=== PATIENT | male | born 1980 | race Two or more races ===

== ENCOUNTER 2020-09-11 06:13 | Emergency (ER) | payer MEDICARE, MEDICAID, SELFPAY ==
[2020-09-11 06:21] VITALS: BP 129/70; PULSE 97; RESP 18; TEMP 38.2; O2SAT 97; BMI 31.1
--- NOTE | 2020-09-11 06:41 | PC.NURSE ---
side rales padded suction at bedside.
--- NOTE | 2020-09-11 06:46 | ECG_ITS ---
Test Reason : SEIZURE Blood Pressure : / mmHG Vent. Rate : 099 BPM Atrial Rate : 099 BPM P-R Int : 164 ms QRS Dur : 072 ms QT Int : 340 ms P-R-T Axes : 035 -08 054 degrees QTc Int : 436 ms Normal sinus rhythm Normal ECG When compared with ECG of 18-FEB-2009 19:14, Nonspecific ST abnormality Septal leads is no longer Present Heart rate has increased Referred By: Maribeth Shepard Electronically Signed By:GEETA CAMPBELL MD
--- NOTE | 2020-09-11 07:24 | ED.SEIZURE ---
HPI - Seizure General Chief Complaint: Seizure Stated Complaint: SEIZURES Time Seen by Provider: 09/11/20 06:45 Source: patient and EMS Mode of arrival: EMS Limitations: no limitations History of Present Illness HPI Narrative: patient comes to the emergency room after having 1 seizure. Patient states he got up to the bathroom, does not remember anything else. Patient states he has history of seizures, takes Keppra 1000 mg twice a day, has been compliant with his medication. Patient states he had a seizure last week, was minor, did not go to the hospital. Patient's neurologist is in [place]. At this time, patient feels tired but nearly back to baseline. patient states over last 3-4 days, he has been feeling feverish, like he is getting a cold MD complaint: seizure Onset (ago): minute(s) Related Data Previous Rx's Medication Instructions Recorded azithromycin 250 mg PO DAILY 5 Days #5 tab 09/11/20 Allergies Allergy/AdvReac Type Severity Reaction Status Date / Time No Known Allergies Allergy Mild NONE Unverified 08/06/20 16:08 NKDA Allergy Unknown Uncoded 08/22/19 00:00 Review of Systems Review of Systems: Constitutional : No Weight loss, No Fever, No Chills, No Night Sweats, No Fatigue, No Malaise ENT/Mouth : No Hearing loss, No Ear Pain, No Nasal Congestion, No Sinus Pain, No Hoarseness, No sore throat, No Rhinorrhea, No Swallowing Difficulty Eyes: No Eye Pain, No Swelling, No Redness, No Foreign Body, No Discharge, No Vision Changes Cardiovascular : No Chest Pain, No SOB, No Dyspnea on Exertion, No Orthopnea, No Edema, No Palpitations Respiratory : No Cough, No Sputum, No Wheezing, No Smoke Exposure, No Dyspnea Gastrointestinal : No Nausea, No Vomiting, No Diarrhea, No Constipation, No abdominal Pain, No Hematochezia, No Melena Genitourinary : no irregular bleeding, No Dysuria, No Urinary Frequency, No Hematuria, No Urinary Incontinence, No Urgency, No Flank Pain, No Urinary Flow Changes, No Hesitancy Musculoskeletal : No joint pain, No Myalgias, No Joint Swelling Skin : No Skin Lesions, No rash Neuro : No Weakness, No Numbness, No Paresthesias, no headache, had 1 seizure this morning, patient does not recall, tested by patient's and EMS, feeling mildly postictal but recovering Psych : No Anxiety/Panic, No Depression, No SI/HI/AH/VH, No Social Issues, Heme/Lymph: No Bruising, No Bleeding,No Lymphadenopathy Endocrine : No Polyuria, No Polydipsia, No Temperature Intolerance [facility] Past Medical History Medical History (Updated 09/11/20 @ 10:23 by Carol Chapman MD) Diabetes mellitus, type 2 Hypertension Seizures Social History Social History Advance Directives: No Physical Exam Vital Signs: Vital Signs: Vital Signs Temp Pulse Resp BP Pulse Ox 09/11/20 06:21 100.8 F H 97 18 129/70 97 Body Mass Index 31.1 Appearance: Alert. Oriented X3. No acute distress. Eyes: Pupils equal, round and reactive to light. ENT: Pharynx normal. Neck: Normal inspection. Neck supple. No lymph nodes noted. No crepitus CVS: Normal heart rate and rhythm. Pulses normal. Normal S1 and S2 Respiratory: No respiratory distress. Breath sounds normal. No Wheezing. No rales Abdomen: Soft and nontender. No rigidity. No distention. good BS x4 Skin: Skin warm and dry. Normal skin color. Normal skin turgor. Extremities: No lower extremity edema. No lower extremity edema. No Lacerations. No Rash Neuro: Oriented X 3. No motor deficit. No sensory deficit. Moving all extermities. No slurred speech. Course Course Course Narrative: Patient states he feels better, he received 1000 mg of Keppra IV. Patient states he is no longer postictal or drowsy. I discussed the labs and imaging with the patient, consistent with COVID-19 infection. Patient's oxygen saturation is 96% on room air, patient may still go home. I discussed with the patient that his needs to be tested as well MDM - Seizure Lab Data Result diagrams: 09/11/20 07:43 09/11/20 07:42 Labs: Lab Results 09/11/20 09/11/20 09/11/20 Range/Units 07:42 07:42 07:42 WBC (4.8-10.8) X10*3/uL RBC (4.60-5.80) X10*6/uL Hgb (14.0-18.0) g/dl Hct (42-52) % MCV (80-98) fL MCH (27.0-33.0) pg MCHC (31.0-36.0) g/dl RDW (11.0-16.0) % Plt Count (160-400) X10*3/uL MPV (9.4-12.4) fL Immature Gran % (Auto) (0.0-0.4) % Neut % (Auto) (45-73) % Lymph % (Auto) (20-40) % [place] % (Auto) (2-11) % Eos % (Auto) (0-4) % Baso % (Auto) (0-2) % Lymph # (Auto) (1.2-4.9) X10*3/uL [place] # (Auto) (0.1-1.2) X10*3/uL Eos # (Auto) (0.0-0.4) X10*3/uL Baso # (Auto) (0.0-0.2) X10*3/uL Abs Immat Gran (auto) (0.00-0.03) X10*3/uL Absolute Neuts (auto) (2.0-8.3) X10*3/uL Absolute Nucleated RBC (0.0-0.012) X10*3/uL Nucleated RBC % (auto) (0.0-0.2) /100WBC Sodium 135 (135-145) mmol/L Potassium 4.2 (3.3-5.1) mmol/l Chloride 102 (96-108) mmol/L Carbon Dioxide 25 (22-29) mmol/L Anion Gap 12 (12-20) BUN 15 (9-16) mg/dL Creatinine 0.91 (0.5-1.4) mg/dL Estim Creat Clear Calc 117.0 Estimated GFR > 60 Random Glucose 237 H (60-115) mg/dL Lactic Acid 0.8 (0.5-2.0) mmol/L Calcium 8.2 L (8.4-10.2) mg/dL Total Bilirubin 0.3 (0.0-1.0) mg/dL AST 28 (5-37) U/L ALT 42 H (0-40) U/L Alkaline Phosphatase 153 H (39-117) U/L Total Protein 6.5 (6.5-8.0) g/dL Albumin 3.7 (3.5-5.0) g/dL Lipase 74 (8-78) U/L Ethyl Alcohol < 10 mg/dL Coronavirus (PCR) (Negative) 09/11/20 09/11/20 Range/Units 07:43 08:11 WBC 5.1 (4.8-10.8) X10*3/uL RBC 5.05 (4.60-5.80) X10*6/uL Hgb 13.4 L (14.0-18.0) g/dl Hct 40.4 L (42-52) % MCV 80.0 (80-98) fL MCH 26.5 L (27.0-33.0) pg MCHC 33.2 (31.0-36.0) g/dl RDW 13.0 (11.0-16.0) % Plt Count 161 (160-400) X10*3/uL MPV 11.6 (9.4-12.4) fL Immature Gran % (Auto) 0.8 H (0.0-0.4) % Neut % (Auto) 79.5 H (45-73) % Lymph % (Auto) 14.2 L (20-40) % [place] % (Auto) 4.7 (2-11) % Eos % (Auto) 0.6 (0-4) % Baso % (Auto) 0.2 (0-2) % Lymph # (Auto) 0.7 L (1.2-4.9) X10*3/uL [place] # (Auto) 0.2 (0.1-1.2) X10*3/uL Eos # (Auto) 0.0 (0.0-0.4) X10*3/uL Baso # (Auto) 0.0 (0.0-0.2) X10*3/uL Abs Immat Gran (auto) 0.04 H (0.00-0.03) X10*3/uL Absolute Neuts (auto) 4.0 (2.0-8.3) X10*3/uL Absolute Nucleated RBC 0.000 (0.0-0.012) X10*3/uL Nucleated RBC % (auto) 0.0 (0.0-0.2) /100WBC Sodium (135-145) mmol/L Potassium (3.3-5.1) mmol/l Chloride (96-108) mmol/L Carbon Dioxide (22-29) mmol/L Anion Gap (12-20) BUN (9-16) mg/dL Creatinine (0.5-1.4) mg/dL Estim Creat Clear Calc Estimated GFR Random Glucose (60-115) mg/dL Lactic Acid (0.5-2.0) mmol/L Calcium (8.4-10.2) mg/dL Total Bilirubin (0.0-1.0) mg/dL AST (5-37) U/L ALT (0-40) U/L Alkaline Phosphatase (39-117) U/L Total Protein (6.5-8.0) g/dL Albumin (3.5-5.0) g/dL Lipase (8-78) U/L Ethyl Alcohol mg/dL Coronavirus (PCR) POSITIVE A (Negative) ECG Data Attestation: I personally reviewed and interpreted this ECG as follows: ( sinus rhythm, heart rate 99, QTC 436, no ST segment elevations or depressions, no T-wave inversions) Discharge Plan Discharge Clinical Impression: Seizures, COVID-19 Patient Disposition: Home, Self-Care Instructions: Recurrent Seizures in Adults (ED), COVID-19 (Coronavirus Disease 2019) (ED) Additional Instructions: please remain self isolated. please discuss with people in your household that they need to be tested for COVID-19. If you have any worsening symptoms, shortness of breath, please return to the emergency room or call 911. also, please call your neurologist and discuss whether you need a readjustment in your current Keppra dose Prescriptions: New azithromycin 250 mg tablet 250 mg PO DAILY 5 Days Qty: 5 RF: 0
--- NOTE | 2020-09-11 07:26 | XR_ITS ---
EXAMINATION: XR CHEST CLINICAL INFORMATION: Fever COMPARISON: October 22, 2018 TECHNIQUE: AP portable view of the chest was obtained. FINDINGS: There are regions of groundglass disease seen within the right lower lung, left mid lung, and left lower lung. No pneumothorax or pleural effusion. Heart normal size. No evidence of pulmonary edema. XR/XR chest 1V IMPRESSION: Patchy regions of disease bilaterally consistent with with pneumonia.
[2020-09-11 07:50] LABS: MANUAL DIFF FLAG NO
[2020-09-11 08:02] LABS: Basophils Percent Auto 0.2 % (0-2); Eosinophils Percent Auto 0.6 % (0-4); Hematocrit 40.4 % (42-52); Hemoglobin 13.4 g/dl (14.0-18.0); Imm Gran Abs Auto 0.04 X10*3/uL (0.00-0.03); Imm Gran Pct Auto 0.8 % (0.0-0.4); Lymphocytes Absolute Auto 0.7 X10*3/uL (1.2-4.9); Lymphocytes Percent Auto 14.2 % (20-40); Mean Corpuscular HGB Conc 33.2 g/dl (31.0-36.0); Mean Corpuscular Hemoglobin 26.5 pg (27.0-33.0); Mean Platelet Volume 11.6 fL (9.4-12.4); Monocytes Absolute Auto 0.2 X10*3/uL (0.1-1.2); Monocytes Percent Auto 4.7 % (2-11); Neutrophils Percent Auto 79.5 % (45-73); Platelet Count 161 X10*3/uL (160-400); Red Blood Count 5.05 X10*6/uL (4.60-5.80); White Blood Count 5.1 X10*3/uL (4.8-10.8)
[2020-09-11 08:25] LABS: Lactic Acid 0.8 mmol/L (0.5-2.0)
[2020-09-11 08:26] LABS: Ethanol < 10 mg/dL
[2020-09-11 08:28] LABS: Alanine Aminotransferase 42 U/L (0-40); Albumin Level 3.7 g/dL (3.5-5.0); Alkaline Phosphatase 153 U/L (39-117); Anion Gap 12 (12-20); Aspartate Amino Transferase 28 U/L (5-37); Bilirubin Total 0.3 mg/dL (0.0-1.0); Blood Urea Nitrogen 15 mg/dL (9-16); Calcium 8.2 mg/dL (8.4-10.2); Carbon Dioxide 25 mmol/L (22-29); Chloride 102 mmol/L (96-108); Estimated Glomerular Filt Rate > 60; Glucose Random 237 mg/dL (60-115); Lipase 74 U/L (8-78); Potassium 4.2 mmol/l (3.3-5.1); Sodium 135 mmol/L (135-145); Total Protein 6.5 g/dL (6.5-8.0)
--- NOTE | 2020-09-11 08:38 | PC.NURSE ---
REPORT RECEIVED FROM SHARONDA MEJIAS. PT MOVED FROM ROOM 22 TO ROOM 2 FOR COVID PRECAUTIONS. AWAITING RAPID SWAB RESULTS. PHARMACY CALLED FOR ORDERED MAXX, NOT PRESENT IN PYXIS.
[2020-09-11] MEDS: Acetaminophen 325 MG TABLET 650 MG PO (09:01)
[2020-09-11] MEDS: levETIRAcetam in NaCl (iso-os) 1,000 MG/100 ML PIGGYBACK 400 MG IV (09:01)
[2020-09-11] MEDS: Azithromycin 500 MG TABLET PO (09:01)
[2020-09-11 09:16] LABS: SARS COV2 PCR INHOUSE POSITIVE (Negative)
[2020-09-17 13:32] LABS: Levetiracetam Keppra 3.4 mcg/mL (12.0-46.0)
== END 2020-09-11 11:13 | disposition home or self-care (01) ==
PROVIDERS: Student in an Organized Health Care Education/Training Program; Emergency Provider Emergency Medicine
DX: U07.1 COVID-19 (principal); R56.9 Unspecified convulsions; Z79.899 Other long term (current) drug therapy; E11.9 Type 2 diabetes mellitus without complications; I10 Essential (primary) hypertension
CPT/HCPCS: 36415; 71045; 80053; 80177; 80320; 83605; 83690; 85025; 87040; 87635; 93005; 96374; 99283; 99284

== ENCOUNTER 2024-03-01 08:53 | Outpatient (REF) | payer MEDICARE, MEDICAID, SELFPAY ==
[2024-03-01 11:41] LABS: MANUAL DIFF FLAG NO
[2024-03-01 11:53] LABS: Basophils Absolute Auto 0.1 X10*3/uL (0.0-0.2); Basophils Percent Auto 1.2 % (0-2); Eosinophils Absolute Auto 0.1 X10*3/uL (0.0-0.4); Hematocrit 51.6 % (42.0-52.0); Hemoglobin 16.8 g/dl (14.0-18.0); Imm Gran Abs Auto 0.03 X10*3/uL (0.00-0.03); Imm Gran Pct Auto 0.5 % (0.0-0.4); Lymphocytes Percent Auto 29.9 % (20-40); Mean Corpuscular HGB Conc 32.6 g/dl (31.0-36.0); Mean Corpuscular Hemoglobin 26.5 pg (27.0-33.0); Mean Corpuscular Volume 81.3 fL (80.0-98.0); Mean Platelet Volume 11.9 fL (9.4-12.4); Monocytes Absolute Auto 0.4 X10*3/uL (0.1-1.2); Monocytes Percent Auto 5.8 % (2-11); Neutrophils Percent Auto 60.6 % (45-73); Platelet Count 206 X10*3/uL (160-400); Red Blood Count 6.35 X10*6/uL (4.60-5.80); Red Cell Distribution Width 15.8 % (11.0-16.0); White Blood Count 6.6 X10*3/uL (4.8-10.8)
[2024-03-01 12:38] LABS: Estimated Average Glucose 209 mg/dL; Hemoglobin A1c % 8.9 % (<6.0)
[2024-03-01 12:45] LABS: TSH reflex Free T4 1.76 uIU/mL (0.32-4.0); Vitamin D 25-OH Total 33.3 ng/mL (>30)
[2024-03-01 13:22] LABS: Vitamin B12 951 pg/mL (200-900)
[2024-03-01 13:33] LABS: Alanine Aminotransferase 71 U/L (0-40); Albumin Level 4.5 g/dL (3.5-5.0); Alkaline Phosphatase 135 U/L (39-117); Anion Gap 16 (12-20); Aspartate Amino Transferase 28 U/L (5-37); Bilirubin Direct 0.1 mg/dL (0.0-0.5); Bilirubin Total 0.3 mg/dL (0.0-1.0); Blood Urea Nitrogen 16 mg/dL (9-16); Calcium 10.2 mg/dL (8.4-10.2); Carbon Dioxide 26 mmol/L (22-29); Chloride 104 mmol/L (96-108); Cholesterol 156 mg/dL (<200); Estimated Glomerular Filt Rate > 60; Glucose Random 215 mg/dL (60-115); HDL Cholesterol 31 mg/dL (>40); LDL Cholesterol Calculated 76 mg/dL (<100); Potassium 4.5 mmol/L (3.3-5.1); Sodium 141 mmol/L (135-145); Total Protein 8.1 g/dL (6.5-8.0); Triglycerides 249 mg/dL (<150)
[2024-03-02 04:27] LABS: HIV AB/AG Nonreactive (Nonreactive); HIV Num 1 0.06 S/CO (0.00-0.99); ~HepC Num1 0.08 S/CO (0.00-0.79); ~Hepatitis C Antibody Nonreactive (Nonreactive)
[2024-03-07 09:09] LABS: Testosterone, Total 368 ng/dL (250-1100)
== END 2024-03-01 08:54 | disposition home or self-care (01) ==
LOC: HO.HHCL 08:53
PROVIDERS: Visit Provider Internal Medicine
DX: E11.65 Type 2 diabetes mellitus with hyperglycemia (principal); R53.83 Other fatigue; Z79.4 Long term (current) use of insulin
CPT/HCPCS: 36415; 80048; 80061; 80076; 82306; 82607; 82746; 83036; 84403; 84443; 85025; 86803; 87389

== ENCOUNTER 2024-05-30 14:12 | Outpatient (AMB) | payer MEDICARE, MEDICAID, SELFPAY ==
--- NOTE | 2024-05-30 14:13 | A.OFFVIS_ITS ---
Intake Visit Reasons: recurrent balanitis/phimosis Intake Note: Patient is present for recurrent balanitis/phimosis Urology Medication:none Antibiotic Allergy:none Blood Thinner:none Diabetic Medication: SITIGLIPTIN (Januvia) [place] Rope Maker Required: No Allergies No Known Allergies Allergy (Mild, Verified 05/30/24 14:15) NONE NKDA Allergy (Unknown, Uncoded 05/30/24 14:15) Unknown HPI Comments Details: 05/30/24--Sandro is a 43 year old with complaints of recurrent balanits. CoMorbidity Diabetes Failed antifungal cream medication. Discussed circumcision. Lab review 03/01/23-HbA1C 8.4 Plan circumcision. repeat HbA1C.. [facility] Medical History Seizures Diabetes mellitus, type 2 Hypertension Review of Systems Const All systems reviewed & are unremarkable except as noted in HPI and below Reports no additional complaints Eyes Reports no additional complaints ENT Reports no additional complaints Card Reports no additional complaints Resp Reports no additional complaints GI Reports no additional complaints Reports as per HPI Musc Reports no additional complaints Skin/Breast Reports system reviewed and no additional complaints, except as documented Neuro Reports no additional complaints Psych Reports no additional complaints Endo Reports no additional complaints Hans/Lymph Reports no additional complaints Aller/Immun Reports no additional complaints Physical Exam Const General: healthy appearing, no acute distress and well developed Orientation/consciousness: patient oriented x3 HEENT Head: Yes normocephalic and Yes atraumatic Eyes Conjunctivae: conjunctivae normal Neck Neck: Yes normal visual inspection Chest Chest palpation & inspection: normal inspection of the chest Resp Effort & Inspection: normal respiratory effort GI Inspection: Yes normal to inspection Palpation (GI): Soft to palpation Penis: uncircumcised and phimosis Scrotum: scrotum normal Neuro General: patient oriented x3 Extrem General: No pedal edema Psych Appearance: grossly normal Affect: normal affect Results AMB Urinalysis, Automated UA Leukoctes 0 Robby/uL Last Edit by CONNIE Julien on 05/30/24 14:25 UA Nitrite Negative Last Edit by CONNIE Julien on 05/30/24 14:25 UA Urobilinogen 0.2 mg/dL Last Edit by CONNIE Julien on 05/30/24 14:2 5 UA Protein 0 mg/dL Last Edit by CONNIE Julien on 05/30/24 14:25 UA pH 5.5 Last Edit by CONNIE Julien on 05/30/24 14:25 UA Blood 0 Cristi/uL Last Edit by CONNIE Julien on 05/30/24 14:25 UA Specific [place] 1.015 Last Edit by CONNIE Julien on 05/30/24 14: 25 UA Ketone Positive Last Edit by CONNIE Julien on 05/30/24 14:25 UA Bilirubin 0 mg/dL Last Edit by CONNIE Julien on 05/30/24 14:25 UA Glucose 1000 mg/dL Last Edit by CONNIE Julien on 05/30/24 14:25 Results Reviewed Results Reviewed: Laboratory Last Values Urine pH (Auto) 5.5 05/30/24 14:24 Specific [place] (Auto) 1.015 05/30/24 14:24 Urine Protein (Auto) 0 mg/dL 05/30/24 14:24 Glucose (UA)(Auto) 1000 mg/dL 05/30/24 14:24 Urine Ketones (Auto) Positive 05/30/24 14:24 Urine Blood (Auto) 0 Cristi/uL 05/30/24 14:24 Urine Nitrite (Auto) Negative 05/30/24 14:24 Urine Bilirubin (Auto) 0 mg/dL 05/30/24 14:24 Urine Urobilinogen (Auto) 0.2 mg/dL 05/30/24 14:24 Leukocyte Esterase (Auto) 0 Robby/uL 05/30/24 14:24 Assessment & Plan Assessment & Plan (1) Balanitis: Code(s): N48.1 - Balanitis Category: Medical (2) Phimosis: Code(s): N47.1 - Phimosis Category: Medical Plan schedule circumcision repeat HbA1C Orders: Orders AMB Urinalysis Automated 05/30/24 Z13.9 - Encounter for screening, unspecified Patient Instructions: The patient had an opportunity to ask questions regarding treatment plan. The patient expressed understanding and agreement with the above treatment plan. The patient is aware they should contact our office by phone for worsening of their current condition or the appearance of new symptoms. Compliance is encouraged with any medications and followup testing that is ordered. It is a privilege to be allowed the opportunity to participate in the urologic care of your patient. If you have any questions or concerns regarding treatment for the above conditions please do not hesitate to contact me. The office telephone contact is [phone]. This note is constructed in part using voice recognition software. While every effort has been made to ensure accuracy air export operations agent errors may have been included. Yours sincerely, Starr Charles MD Coding Level of Care Code New Pt Level 3 (70552) Diagnoses Balanitis N48.1 Phimosis N47.1
== END 2024-05-30 15:15 | disposition home or self-care (01) ==
PROVIDERS: PCP Internal Medicine; Visit Provider Urology
DX: N48.1 Balanitis (principal); N47.1 Phimosis
CPT/HCPCS: 99203

== ENCOUNTER → 2024-05-30 14:12 | Outpatient (BNVA) | payer MEDICARE, MEDICAID, SELFPAY | PROVIDERS: PCP Internal Medicine; Visit Provider Urology | DX: N48.1 Balanitis (principal); N47.1 Phimosis | CPT/HCPCS: 81003; 99202 ==

== ENCOUNTER 2024-07-30 12:55 | Outpatient (REF) | payer OTHER, MEDICARE, MEDICAID, SELFPAY ==
[2024-07-30 14:04] LABS: Estimated Average Glucose 252 mg/dL; Hemoglobin A1c % 10.4 % (<6.0)
== END 2024-07-30 12:56 | disposition home or self-care (01) ==
LOC: HO.LAB 12:55
PROVIDERS: PCP Internal Medicine; Visit Provider Urology
DX: N47.1 Phimosis (principal); N48.1 Balanitis; E11.9 Type 2 diabetes mellitus without complications
CPT/HCPCS: 36415; 83036

== ENCOUNTER 2025-05-26 17:20 | Emergency (ER) | payer MEDICARE, MEDICAID, SELFPAY ==
--- NOTE | ~2025-05-26 | US_ITS ---
CLINICAL HISTORY: RUQ pain, liver, GB, CBD Limited abdominal ultrasound Comparison: None available Findings: The liver is increase in echogenicity without focal lesions. Hepatopetal flow is seen within the portal vein. The common bile duct is normal in diameter, measuring 0.3 cm. Cholelithiasis. No wall thickening or pericholecystic fluid. Negative sonographic Al sign. The right kidney is normal in echogenicity. Impression: Cholelithiasis without acute cholecystitis. This document has been electronically signed by: Fernanda Lo MD on 05/26/2025 20:04:32
[2025-05-26 17:25] VITALS: BP 140/82; PULSE 82; O2SAT 100
[2025-05-26 17:39] VITALS: BP 135/69; PULSE 70; RESP 16; TEMP 36.6; O2SAT 99; BMI 27.6
[2025-05-26 18:58] LABS: Hemoglobin 14.4 g/dl (14.0-18.0); Lymphocytes Absolute Auto 0.7 X10*3/uL (1.2-4.9); Mean Corpuscular Hemoglobin 27.2 pg (27.0-33.0); NRBC Abs Auto 0.000 X10*3/uL (0.0-0.012); NRBC Pct Auto 0.0 /100WBC (0.0-0.2); PLT CLUMP 1; Red Blood Count 5.30 X10*6/uL (4.60-5.80); SCAN SMEAR FLAG 1
[2025-05-26 18:59] LABS: Hematocrit 42.1 % (42.0-52.0); Imm Gran Abs Auto 0.02 X10*3/uL (0.00-0.03); Imm Gran Pct Auto 0.4 % (0.0-0.4); Mean Corpuscular HGB Conc 34.2 g/dl (31.0-36.0); Mean Corpuscular Volume 79.4 fL (80.0-98.0)
--- NOTE | 2025-05-26 19:00 | PC.NURSE ---
this rn assumed care of pt, pt medicated per jan, tolerated well, reports 10/10 lower back pain. iv fluids administering
[2025-05-26 19:02] VITALS: RESP 17
[2025-05-26] MEDS: levETIRAcetam in NaCl (iso-os) 1,000 MG/100 ML PIGGYBACK 400 MG IV (19:02)
[2025-05-26 19:04] LABS: MANUAL DIFF FLAG NO; Platelet Count 134 X10*3/uL (160-400); White Blood Count 4.8 X10*3/uL (4.8-10.8)
[2025-05-26 19:16] LABS: Alanine Aminotransferase 74 U/L (0-40); Albumin Level 4.1 g/dL (3.5-5.0); Alkaline Phosphatase 132 U/L (39-117); Anion Gap 11 (12-20); Aspartate Amino Transferase 49 U/L (5-37); Blood Urea Nitrogen 9 mg/dL (9-16); Calcium 8.3 mg/dL (8.4-10.2); Carbon Dioxide 21 mmol/L (22-29); Chloride 109 mmol/L (96-108); Creatinine Clr Calc Pharmacy 158.8; Estimated Glomerular Filt Rate > 60; Lipase 34 U/L (8-78); Magnesium 2.0 mg/dL (1.6-2.6); Potassium 4.4 mmol/L (3.3-5.1); Sodium 137 mmol/L (135-145); Total Protein 7.3 g/dL (6.5-8.0)
--- NOTE | 2025-05-26 20:09 | ED_ITS ---
HPI - General Adult General Chief complaint: Back Pain/Injury Stated complaint: sharp lower back pain, radiating to abd n/v/d Time Seen by Provider: 05/26/25 18:19 Source: patient Limitations: no limitations History of Present Illness ED Provider: Mariia Uriarte PA-C HPI narrative: 44-year-old male with a history of diabetes, seizure disorder on Keppra, hypertension, hyperlipidemia who presents with upper abdominal discomfort x 2 days. Pain over upper abdomen with radiation to the back. Patient states it is difficult to lie flat, or sit up straight secondary to his discomfort. Patient states he had a fever over the weekend, associated nausea vomiting. Related Data Home Medications ?Medication ?Instructions ?Recorded ?Confirmed amlodipine 5 mg tablet 5 mg PO DAILY 05/30/24 atorvastatin 40 mg tablet 40 mg PO DAILY 05/30/24 buspirone 5 mg tablet 5 mg PO BID 05/30/24 glipizide 5 mg tablet, extended 5 mg PO DAILY 05/30/24 release 24 hr hydroxyzine HCl 25 mg tablet 25 mg PO TID 05/30/24 levetiracetam 1,000 mg tablet 1,000 mg PO BID 05/30/24 losartan 100 mg tablet 100 mg PO DAILY 05/30/24 sertraline 25 mg tablet 25 mg PO DAILY 05/30/24 sitagliptin phosphate 50 1 tab PO BID 05/30/24 mg-metformin 1,000 mg tablet (Manishumekarol) Previous Rx's ?Medication ?Instructions ?Recorded azithromycin 250 mg tablet 250 mg PO DAILY 5 days #5 t abs 09/11/20 ondansetron HCl 4 mg tablet 4 mg PO Q8H PRN nausea and 05/26/25 vomiting #10 tabs Allergies Allergy/AdvReac Type Severity Reaction Status Date / Time No Known Allergies Allergy Mild NONE Verified 05/26/25 17:43 NKDA Allergy Unknown Unknown Uncoded 05/30/24 14:15 Review of Systems 2 Review of Systems: Yes all other systems are reviewed and are negative Constitutional: Constitutional: Denies fatigue and Denies fever(s) Cardiovascular: Cardiovascular: Denies chest pain and Denies dyspnea Respiratory: Respiratory: Denies dyspnea Gastrointestinal: Gastrointestinal: Reports abdominal pain, Denies diarrhea, Reports nausea and Reports vomiting Endocrine: Endocrine: Denies fatigue PMFSH Past Medical History Attestation statement: The following information was validated with the patient. Medical History (Updated 05/26/25 @ 21:30 by LINETTE Guzman) Seizures Diabetes mellitus, type 2 Hypertension Social History Social History Smoked in Last 30 Days: No Use of substances other than those prescribed or required for medical reasons: No Advance Directives: No Advance Directives Information Provided: No Physical Exam ED Vital Signs: Vital Signs - 24 hr 05/26/25 17:39 05/26/25 19:02 Temperature 98 F Pulse Rate 70 Respiratory Rate 16 17 Blood Pressure 135/69 Pulse Oximetry 99 Oxygen Delivery Method Room Air BMI result Body Mass Index 27.6 Const Other: alert well-appearing Orientation/consciousness: patient oriented x3 Resp Effort & Inspection: normal respiratory effort Cardio Other: Normal peripheral perfusion GI Other: Abdomen is soft, nondistended, mild to moderate tenderness over right upper quadrant with out involuntary guarding Skin Other: Warm dry no rash Neuro General: patient oriented x3, gait normal, no focal motor deficits and CN's II- XI intact bilaterally Psych Other: Cooperative Course Consultations Consultation #1: per Dr Bowling...... Given the patient has no lab abnormalities, and no evidence of cholecystitis, the patient can contact his office tomorrow to schedule an appointment to discuss elective removal of the gallbladder. I relayed information to the patient, he is in agreement. Time: 20:09 Medications Administered Discontinued Medications Generic Name Dose Route Start Last Admin Trade Name Freq PRN Reason Stop Dose Admin Levetiracetam 1,000 mg in 100 mls @ 400 mls/hr 05/26/25 18:22 05/26/25 19:17 Keppra IV 05/26/25 18:36 Infused ONCE ONE Infusion Sodium Chloride 1,000 mls @ 999 mls/hr 05/26/25 18:45 05/26/25 19:02 Ns IV 05/26/25 19:45 999 mls/hr .Q1H1M JASWANT Administration Morphine Sulfate 4 mg 05/26/25 18:45 05/26/25 19:02 Morphine Sulfate 4 Mg/Ml Cartridge IVPUSH 05/26/25 18:46 4 mg ONCE ONE Administration Protocol Ondansetron HCl 4 mg 05/26/25 18:45 05/26/25 19:02 Ondansetron Hcl 4 Mg/2 Ml Vial IVPUSH 05/26/25 18:46 4 mg ONCE ONE Administration Medical Decision Making Medical Decision Making MDM Narrative: 44-year-old male with a history of diabetes, seizure disorder on Keppra, hypertension, hyperlipidemia who presents with upper abdominal discomfort x 2 days. Pain over upper abdomen with radiation to the back. Patient states it is difficult to lie flat, or sit up straight secondary to his discomfort. Patient states he had a fever over the weekend, associated nausea vomiting. Problem: Diabetes, seizure disorder History: Per patient I have considered the following differential diagnoses: Biliary colic, cholecystitis, poorly controlled GERD/gastritis, pancreatitis Plan: Given distribution of discomfort in nature of symptoms, I am considering underlying biliary versus gastric versus pancreatic etiology as cause for his symptoms. Screening labs are in process, his LFTs are at baseline, lipase not elevated, ordering an ultrasound of the right upper quadrant. We will be giving morphine Zofran and IV fluid. There was report that the patient had a seizure out in the waiting room, from what the family describes, he was having a panic attack, he had no postictal phase, no urinary incontinence no injury sustained, the incident lasted about a minute. To err on the side of caution I am loading him with Keppra I have independently reviewed the following tests: Labs: No leukocytosis, not anemic, no electrolyte abnormalities, LFTs are elevated, however appear to be at his baseline, bilirubin not elevated at 0.3 Ultrasound right upper quadrant:Findings: The liver is increase in echogenicity without focal lesions. Hepatopetal flow is seen within the portal vein. The common bile duct is normal in diameter, measuring 0.3 cm. Cholelithiasis. No wall thickening or pericholecystic fluid. Negative sonographic Al sign. The right kidney is normal in echogenicity. Impression: Cholelithiasis without acute cholecystitis. Lab Data 05/26/25 18:50 05/26/25 18:50 Labs: Lab Results 05/26/25 Range/Units 18:50 WBC 4.8 (4.8-10.8) X10*3/uL RBC 5.30 (4.60-5.80) X10*6/uL Hgb 14.4 (14.0-18.0) g/dl Hct 42.1 (42.0-52.0) % MCV 79.4 L (80.0-98.0) fL MCH 27.2 (27.0-33.0) pg MCHC 34.2 (31.0-36.0) g/dl RDW 13.2 (11.0-16.0) % Plt Count 134 L D (160-400) X10*3/uL MPV 11.0 (9.4-12.4) fL Immature Gran % (Auto) 0.4 (0.0-0.4) % Neut % (Auto) 71.3 (45-73) % Lymph % (Auto) 14.9 L (20-40) % [place] % (Auto) 12.4 H (2-11) % Eos % (Auto) 0.4 (0-4) % Baso % (Auto) 0.6 (0-2) % Lymph # (Auto) 0.7 L (1.2-4.9) X10*3/uL [place] # (Auto) 0.6 (0.1-1.2) X10*3/uL Eos # (Auto) 0.0 (0.0-0.4) X10*3/uL Baso # (Auto) 0.0 (0.0-0.2) X10*3/uL Abs Immat Gran (auto) 0.02 (0.00-0.03) X10*3/uL Absolute Neuts (auto) 3.5 (2.0-8.3) x10*3/uL Absolute Nucleated RBC 0.000 (0.0-0.012) X10*3/uL Nucleated RBC % (auto) 0.0 (0.0-0.2) /100WBC Sodium 137 (135-145) mmol/L Potassium 4.4 (3.3-5.1) mmol/L Chloride 109 H (96-108) mmol/L Carbon Dioxide 21 L (22-29) mmol/L Anion Gap 11 L (12-20) BUN 9 (9-16) mg/dL Creatinine 0.60 (0.5-1.4) mg/dL Estim Creat Clear Calc 158.8 Estimated GFR > 60 Random Glucose 186 H (60-115) mg/dL Calcium 8.3 L D (8.4-10.2) mg/dL Magnesium 2.0 (1.6-2.6) mg/dL Total Bilirubin 0.3 (0.0-1.0) mg/dL AST 49 H (5-37) U/L ALT 74 H (0-40) U/L Alkaline Phosphatase 132 H (39-117) U/L Total Protein 7.3 (6.5-8.0) g/dL Albumin 4.1 (3.5-5.0) g/dL Lipase 34 (8-78) U/L Discharge Plan Discharge Clinical Impression: Biliary colic Patient Disposition: Home, Self-Care Instructions: Biliary Colic (ED) Additional Instructions: You were found to have gallbladder stones. This is the reason why you were having discomfort. I am providing you with a contact for the surgical service, Dr. Bowling, you should call tomorrow to schedule an appointment. In the meantime, if you develop nausea, uses Zofran as needed. It is imperative that you eat a a no fat diet, you should be eating small, frequent meals throughout the day, avoid eating a large heavy, fat laden or high protein meal. Return precautions for the onset of severe constant abdominal pain, fever or intractable nausea vomiting. Prescriptions: New ondansetron HCl 4 mg tablet 4 mg PO Q8H PRN (Reason: nausea and vomiting) Qty: 10 0RF No Action azithromycin 250 mg tablet 250 mg PO DAILY 5 Days Qty: 5 0RF losartan 100 mg tablet 100 mg PO DAILY atorvastatin 40 mg tablet 40 mg PO DAILY buspirone 5 mg tablet 5 mg PO BID glipizide 5 mg tablet extended release 24hr 5 mg PO DAILY amlodipine 5 mg tablet 5 mg PO DAILY sertraline 25 mg tablet 25 mg PO DAILY hydroxyzine HCl 25 mg tablet 25 mg PO TID levetiracetam 1,000 mg tablet 1,000 mg PO BID Janumet 50-1,000 mg tablet 1 tab PO BID Print Language: Greenlandic
[2025-05-26 21:38] VITALS: BP 136/70; PULSE 70; RESP 16; TEMP 36.5; O2SAT 99
[2025-05-26 21:46] VITALS: BP 136/70; PULSE 70; RESP 16; TEMP 36.5; O2SAT 99
[2025-05-29 17:45] LABS: Levetiracetam Keppra <2.0 mcg/mL (6.0-46.0)
== END 2025-05-26 21:47 | disposition home or self-care (01) ==
PROVIDERS: Physician Assistant Medical; Emergency Provider Emergency Medicine; PCP Internal Medicine
DX: K80.50 Calculus of bile duct without cholangitis or cholecystitis without obstruction (principal); R11.2 Nausea with vomiting, unspecified; M54.50 Low back pain, unspecified; Z79.899 Other long term (current) drug therapy
CPT/HCPCS: 36415; 76705; 80053; 80177; 83690; 83735; 85025; 96361; 96374; 96375; 99284; 99285; J1953; J2270; J2405

== ENCOUNTER → 2025-05-26 18:44 | Outpatient (BNV) | payer MEDICARE, MEDICAID, SELFPAY | PROVIDERS: Emergency Provider Emergency Medicine; PCP Internal Medicine; Visit Provider Radiology Diagnostic Radiology | DX: R10.11 Right upper quadrant pain (principal) | CPT/HCPCS: 76705 ==

== ENCOUNTER 2025-06-02 11:10 | Outpatient (REF) | payer MEDICAID, SELFPAY ==
--- OUTSIDE RECORDS SUMMARY | 2025-06-02 12:18 | XMS_ITS | Encounter Summary ---
Author Organization [employer] Address [address] [place] [address] 7 [place] [address] Care Team Providers Care Personnel Research Psychologist Name Role Phone Joyce Greenwood MD Primary Care Provide r Reason for Visit * Reason Comments Med Refill Encounter Details Date Type Department Care Team (Late Contact Info) Description 03/08/2023 Refill [facility] [address] [place] [address] [phone] Joyce Greenwood MD [address] [place] [phone] Social History Tobacco Use Types Packs/Day Years Used Date Smoking Tobacco: Never Assessed Sex and Gender Information Value Date Recorded Sex Assigned at Male 09/19/2022 10:18 AM EDT Legal Sex Male 10:18 AM EDT Gender Identity Choose not to disclose 10:18 AM EDT Sexual Orientation Choose not to disclose 2021 10:18 AM EDT documented as of this encounter Plan of Treatment Upcoming Encounters Date Type Department Care Team (Late st Contact Info) Description 06/04/2025 3:30 PM EDT Office Visit [facility] [address] [place] [phone] Joyce Greenwood MD [address] [place] [phone] documented as of this encounter Visit Diagnoses Not on filedocumented in this encounter Care Teams Personnel Research Psychologist Relationship Specialty Start Date End Date Joyce Greenwood MD [address] [place] [address] PCP - General Family Medicine 10/04/19 documented as of this encounter
[2025-06-02 14:35] LABS: Alanine Aminotransferase 93 U/L (0-40); Albumin Level 4.3 g/dL (3.5-5.0); Alkaline Phosphatase 153 U/L (39-117); Anion Gap 11 (12-20); Aspartate Amino Transferase 39 U/L (5-37); Blood Urea Nitrogen 15 mg/dL (9-16); Calcium 9.6 mg/dL (8.4-10.2); Carbon Dioxide 30 mmol/L (22-29); Chloride 102 mmol/L (96-108); Cholesterol 175 mg/dL (<200); Estimated Glomerular Filt Rate > 60; HDL Cholesterol 26 mg/dL (>40); Potassium 4.3 mmol/L (3.3-5.1); Sodium 139 mmol/L (135-145); Total Protein 7.4 g/dL (6.5-8.0); Triglycerides 276 mg/dL (<150)
== END 2025-06-02 11:11 | disposition home or self-care (01) ==
LOC: HO.HHCL 11:10
PROVIDERS: PCP Internal Medicine; Visit Provider Internal Medicine
DX: E11.65 Type 2 diabetes mellitus with hyperglycemia (principal); Z79.4 Long term (current) use of insulin
CPT/HCPCS: 36415; 80053; 80061; 82043; 82570

== ENCOUNTER 2025-07-07 13:23 | Outpatient (AMB) | payer MEDICARE, MEDICAID, SELFPAY ==
--- NOTE | 2025-07-07 13:27 | MHC.OFFVIS ---
Vital Signs 07/07/25 13:31 Height 5 ft 10 in Weight 193 lb BMI 27.7 BP 135/74 Blood Pressure Location Rt brachial Position Sitting Pulse 91 Intake Visit Reasons: biliary colic Intake Note: Patient seen at [facility] emergency department for upper abdominal pain. Here for evaluation and treatment of biliary colic. Patient c/o: only one episode of pain. Denies nausea, diarrhea. Reports normal BM. Imaging: Abdomen US~ 05-26-2025 Electronic Bench Technician Required: No Accompanied by: spouse Chelsie Allergies No Known Allergies Allergy (Mild, Verified 07/07/25 13:28) NONE NKDA Allergy (Unknown, Uncoded 07/07/25 13:28) Unknown Medication List - Last Reconciled 07/07/25 by Travon Bowling MD amlodipine 5 mg PO DAILY atorvastatin 40 mg PO DAILY buspirone 5 mg PO BID glipizide ER 5 mg PO DAILY hydroxyzine HCl 25 mg PO TID levetiracetam 1,000 mg PO BID losartan 100 mg PO DAILY ondansetron HCl 4 mg PO Q8H PRN sertraline 25 mg PO DAILY sitagliptin phos-metformin 50-1,000 mg (Janumet) 1 tab PO BID HPI HPI biliary colic: Details: 44-year-old male referred by the ER because of gallstones. He had gone to the ER on 05/26/2025 because of an episode of epigastric pain. He said that this lasted for hours. He says the pain was not on the right upper quadrant. He said that he had an ultrasound showing gallstones without cholecystitis so was discharged from there He says that he has had no recurrent pain. He says he has good oral intake. He says he feels well overall. He has had no other episodes of epigastric pain. [facility] Medical History (Updated 07/07/25 @ 14:01 by Travon Bowling MD) Gallstones Seizures Diabetes mellitus, type 2 Hypertension Social History Alcohol intake: current Alcohol intake frequency: holidays/special occasions only Patient Tobacco Use Status: Never used Tobacco Review of Systems Const Denies chills and Denies fever(s) Card Denies chest pain, Denies dyspnea and Denies dyspnea on exertion Resp Denies cough, Denies dyspnea and Denies dyspnea on exertion GI Denies hematochezia and Denies change in bowel habits Denies hematuria and Denies difficulty urinating Musc Denies back pain and Denies limited range of motion Neuro Denies focal weakness and Denies convulsions Psych Denies depression and Denies mood swings Physical Exam Vital Signs: Last Vital Signs Pulse 91 07/07/25 13:31 BP 135/74 07/07/25 13:31 BMI result Body Mass Index 27.7 Const General: comfortable and no acute distress Orientation/consciousness: patient oriented x3 Eyes Other: Anicteric Neck Neck: Yes no lymphadenopathy Resp Auscultation: clear to auscultation bilaterally Cardio Rhythm: regular rhythm GI Palpation (GI): Soft to palpation, nontender and no guarding Neuro General: patient oriented x3 Assessment & Plan Assessment & Plan (1) Gallstones: Code(s): K80.20 - Calculus of gallbladder without cholecystitis without obstruction Category: Medical Plan: He went to the ER last May 26 because of epigastric pain. He has never had any episodes since then. He had an ultrasound showing gallstones He says he had never had any pain in the right upper quadrant. He says it never had any further episodes. I did explain to him the option of laparoscopic cholecystectomy for possible biliary colic. I did tell him about the procedure and I reviewed the risks, benefits, and alternatives. I did tell him that I am uncertain if his episode was secondary to gallstones as had never had any any right upper quadrant pain He does not want to proceed with cholecystectomy at this time. He says he wants to monitor himself closely. I did tell him that if he has episodes of right upper quadrant pain, he should come back to the office to be followed and re-evaluated for possible cholecystectomy He is comfortable with the plan His was with him during the visit. Coding Level of Care Code New Pt Level 3 (17070) Diagnoses Gallstones K80.20
[2025-07-07 13:31] VITALS: BP 135/74; PULSE 91; BMI 27.7
--- OUTSIDE RECORDS SUMMARY | 2025-07-07 14:14 | XMS_ITS | Encounter Summary ---
Author Organization [employer] Address [address] [place] [address] [address] [place] [address] Care Team Providers Care Inspector Balance Truing Name Role Phone Joyce Greenwood MD Primary Care Provide r Reason for Visit * Reason Comments Med Refill Encounter Details Date Type Department Care Team (Late Contact Info) Description 03/08/2023 Refill [facility] [address] [place] [address] Joyce Greenwood MD [address] [place] [address] Social History Tobacco Use Types Packs/Day Years [...] Encounters Date Type Department Care Team (Late Contact Info) Description 08/11/2025 3:30 PM EDT Office Visit [facility] [address] [place] [phone] Joyce Greenwood MD [address] [place] [address] 09/01/2025 1:00 PM EDT Office Visit [facility] [address] [place] [address] Elvi Barrios, OD [address] [place] [address] documented as of this encounter Visit Diagnoses Not on filedocumented in this encounter Care Teams Inspector Balance Truing Relationship Specialty Start Date End Date Joyce Greenwood MD [address] [place], [place] [phone] PCP - General Family Medicine 10/04/19 documented as of this encounter
== END 2025-07-07 13:57 | disposition home or self-care (01) ==
LOC: HO.HGS 13:24
PROVIDERS: PCP Internal Medicine; Visit Provider Surgery
DX: K80.20 Calculus of gallbladder without cholecystitis without obstruction (principal)
CPT/HCPCS: 99203

== ENCOUNTER → 2025-07-07 13:23 | Outpatient (BNVA) | payer MEDICARE, MEDICAID, SELFPAY | PROVIDERS: PCP Internal Medicine; Visit Provider Surgery | DX: K80.20 Calculus of gallbladder without cholecystitis without obstruction (principal) | CPT/HCPCS: 99202 ==